=== PATIENT | male | born 1995 | race Asian ===

== ENCOUNTER 2020-12-10 02:12 | Inpatient (IN) ==
[2020-12-10] MEDS ORDERED: Morphine 4 MG/ML VIAL (1 ml) IV ONE (02:26)
[2020-12-10] MEDS ORDERED: Morphine 4 MG/ML VIAL (1 ml) IV PRN (02:26)
[2020-12-10] MEDS ORDERED: Lactated Ringers 1000 ml BAG 1,000 ML IV ONE (02:26)
[2020-12-10 02:54] LABS: ABS Lymphocytes 0.2 10^3/ul (1.0-4.8); ABS Monocytes 0.4 10^3/ul (0-0.8); ABS Neutrophils 18.1 10^3/ul (1.5-7.7); Eosinophil % 0.1 %; Hematocrit 35 % (42-52); Hemoglobin 11.3 g/dL (14.0-18.0); Lymphocyte % 1.2 %; Mean Corpuscular HGB Conc 32 g/dL (31-36); Mean Corpuscular Hemoglobin 23 pg (27-31); Mean Corpuscular Volume 73 fL (80-94); Platelet Count 506 10^3/uL (150-450); Red Blood Count 4.86 10^6 /uL (4.18-5.48); Red Cell Distribution Width 17 % (10-15); White Blood Count 18.8 10^3/uL (3.5-10.8)
[2020-12-10 03:07] LABS: Albumin 4.2 g/dL (3.2-5.2); Albumin/Globulin Ratio 1.2 (1-3); C Reactive Protein 45.79 mg/L (<8.01); EGFR African American 158.6 (>60); EGFR Non-African American 131.1 (>60); Globulin 3.4 g/dL (2-4); Potassium 3.6 mmol/L (3.5-5.0); Total Bilirubin 0.4 mg/dL (0.2-1.0); Total Protein 7.6 g/dL (6.4-8.9)
[2020-12-10] MEDS ORDERED: Iohexol 300 (CONTRAST) 10 ML SDV IV ONE (04:50)
[2020-12-10] MEDS ORDERED: methylPREDNISolone 125 mg 2 ML VIAL IV ONE (06:26)
[2020-12-10 07:33] LABS: Urine Appearance Clear; Urine Bacteria Absent (Absent); Urine Bilirubin Negative (Negative); Urine Blood Negative (Negative); Urine Color Yellow; Urine Glucose Negative (Negative); Urine Ketones Trace (Negative); Urine Nitrite Negative (Negative); Urine Protein Negative (Negative); Urine Red Blood Cell Trace(0-2/hpf) (Absent); Urine Specific Gravity 1.045 (1.002-1.030); Urine Urobilinogen Negative (Negative); Urine White Blood Cell Trace(0-5/hpf) (Absent)
[2020-12-10] MEDS: NS 0.9% 1000 ml BAG 1,000 ML IV SCH ×3 (07:47→23:54)
[2020-12-10] MEDS ORDERED: Piperacillin/Tazobac ADVAN 3.375 GM in NS 0.9% 100 ml BAG 100 ML IV ONE (08:22)
[2020-12-10] MEDS ORDERED: NS 0.9% 1000 ml BAG 1,000 ML IV ONE (08:22)
[2020-12-10] MEDS ORDERED: Zosyn per Pharmacy NOTE FOLLOW UP SCH (09:00)
[2020-12-10] MEDS: Pantoprazole VIAL 40 MG VIAL IV SCH (11:28)
[2020-12-10] MEDS: Piperacillin/Tazobac ADVAN 3.375 GM in NS 0.9% 100 ml BAG 100 ML IV SCH ×2 (12:50→20:39)
[2020-12-10] MEDS: methylPREDNISolone SOD 40 mg/ml 1 ml VIAL IV SCH ×2 (16:00→23:30)
[2020-12-10] MEDS: Morphine 2 MG/ML SYRINGE IV PRN ×2 (16:31→20:42)
[2020-12-11] MEDS: Piperacillin/Tazobac ADVAN 3.375 GM in NS 0.9% 100 ml BAG 100 ML IV SCH ×3 (05:09→20:42)
[2020-12-11 06:18] LABS: Hematocrit 32 % (42-52); Hemoglobin 10.2 g/dL (14.0-18.0); Mean Corpuscular HGB Conc 32 g/dL (31-36); Mean Corpuscular Hemoglobin 23 pg (27-31); Mean Corpuscular Volume 74 fL (80-94); Mean Platelet Volume 8.1 fL (7.4-10.4); Platelet Count 491 10^3/uL (150-450); Red Blood Count 4.38 10^6 /uL (4.18-5.48); Red Cell Distribution Width 16 % (10-15); White Blood Count 34.2 10^3/uL (3.5-10.8)
[2020-12-11 06:29] LABS: Calcium 9.2 mg/dL (8.6-10.3); EGFR African American 174.9 (>60); EGFR Non-African American 144.5 (>60); Potassium 3.7 mmol/L (3.5-5.0)
[2020-12-11 06:38] LABS: ABS Lymphocytes 0.6 10^3/ul (1.0-4.8); ABS Monocytes 0.6 10^3/ul (0-0.8); Lymphocyte % 1.7 %
[2020-12-11] MEDS: Pantoprazole VIAL 40 MG VIAL IV SCH (07:25)
[2020-12-11] MEDS: methylPREDNISolone SOD 40 mg/ml 1 ml VIAL IV SCH ×3 (07:25→23:49)
[2020-12-11] MEDS: NS 0.9% 1000 ml BAG 1,000 ML IV SCH ×2 (07:30→16:07)
[2020-12-11 09:18] LABS: ABS Lymphocytes 0.6 10^3/ul (1.0-4.8); ABS Monocytes 0.5 10^3/ul (0-0.8); ABS Neutrophils 30.8 10^3/ul (1.5-7.7); Hematocrit 33 % (42-52); Lymphocyte % 1.9 %; Mean Corpuscular HGB Conc 31 g/dL (31-36); Mean Corpuscular Hemoglobin 23 pg (27-31); Mean Corpuscular Volume 73 fL (80-94); Mean Platelet Volume 8.1 fL (7.4-10.4); Platelet Count 463 10^3/uL (150-450); Red Blood Count 4.43 10^6 /uL (4.18-5.48); Red Cell Distribution Width 17 % (10-15)
[2020-12-11 10:47] LABS: Hepatitis B Surface Antigen Nonreactive (Nonreactive)
[2020-12-11 10:52] LABS: Hepatitis A Ab IgM Negative (Negative); Hepatitis B Core IgM Nonreactive (Nonreactive)
[2020-12-11 10:55] LABS: HIV 4th Generation Nonreactive (Nonreactive)
[2020-12-11 11:04] LABS: Hepatitis C Antibody Negative (Negative)
[2020-12-12] MEDS: Piperacillin/Tazobac ADVAN 3.375 GM in NS 0.9% 100 ml BAG 100 ML IV SCH ×2 (04:40→12:26)
[2020-12-12 08:19] LABS: ABS Lymphocytes 0.6 10^3/ul (1.0-4.8); ABS Monocytes 0.6 10^3/ul (0-0.8); ABS Neutrophils 22.3 10^3/ul (1.5-7.7); Hematocrit 32 % (42-52); Hemoglobin 10.4 g/dL (14.0-18.0); Lymphocyte % 2.8 %; Mean Corpuscular HGB Conc 32 g/dL (31-36); Mean Corpuscular Hemoglobin 23 pg (27-31); Mean Corpuscular Volume 72 fL (80-94); Mean Platelet Volume 8.2 fL (7.4-10.4); Platelet Count 509 10^3/uL (150-450); Red Blood Count 4.47 10^6 /uL (4.18-5.48); Red Cell Distribution Width 17 % (10-15); White Blood Count 23.5 10^3/uL (3.5-10.8)
[2020-12-12] MEDS: Pantoprazole VIAL 40 MG VIAL IV SCH (08:19)
[2020-12-12] MEDS: methylPREDNISolone SOD 40 mg/ml 1 ml VIAL IV SCH ×3 (08:19→23:15)
[2020-12-12 08:29] LABS: Albumin 3.8 g/dL (3.2-5.2); C Reactive Protein 148.57 mg/L (<8.01); Calcium 9.2 mg/dL (8.6-10.3); EGFR African American 171.9 (>60); EGFR Non-African American 142.1 (>60); Globulin 3.7 g/dL (2-4); Potassium 3.7 mmol/L (3.5-5.0); Total Bilirubin 0.4 mg/dL (0.2-1.0); Total Protein 7.5 g/dL (6.4-8.9)
[2020-12-12] MEDS ORDERED: Piperacillin/Tazobac ADVAN 3.375 GM in NS 0.9% 100 ml BAG 100 ML IV ONE (21:35)
[2020-12-12] MEDS ORDERED: Zosyn per Pharmacy NOTE FOLLOW UP SCH (22:00)
[2020-12-12] MEDS: ZOSYN 3.375 GM Q8H per EXTENDED INFUSION IV SCH (22:20)
[2020-12-12] MEDS: Morphine 2 MG/ML SYRINGE IV PRN (23:15)
[2020-12-13] MEDS: ZOSYN 3.375 GM Q8H per EXTENDED INFUSION IV SCH ×3 (06:14→23:10)
[2020-12-13 07:47] LABS: ABS Lymphocytes 0.5 10^3/ul (1.0-4.8); ABS Monocytes 0.8 10^3/ul (0-0.8); ABS Neutrophils 17.1 10^3/ul (1.5-7.7); Hematocrit 31 % (42-52); Hemoglobin 9.9 g/dL (14.0-18.0); Lymphocyte % 2.5 %; Mean Corpuscular HGB Conc 32 g/dL (31-36); Mean Corpuscular Hemoglobin 23 pg (27-31); Mean Corpuscular Volume 72 fL (80-94); Mean Platelet Volume 7.9 fL (7.4-10.4); Platelet Count 472 10^3/uL (150-450); Red Cell Distribution Width 16 % (10-15); White Blood Count 18.3 10^3/uL (3.5-10.8)
[2020-12-13] MEDS: methylPREDNISolone SOD 40 mg/ml 1 ml VIAL IV SCH ×3 (07:51→23:16)
[2020-12-13 08:01] LABS: Albumin 3.3 g/dL (3.2-5.2); C Reactive Protein 69.76 mg/L (<8.01); Calcium 8.6 mg/dL (8.6-10.3); EGFR African American 156.2 (>60); EGFR Non-African American 129.1 (>60); Globulin 3.3 g/dL (2-4); Potassium 3.9 mmol/L (3.5-5.0); Total Bilirubin 0.3 mg/dL (0.2-1.0); Total Protein 6.6 g/dL (6.4-8.9)
[2020-12-13 13:06] LABS: QuantiferonTb Gold Plus Result Negative (Negative)
[2020-12-14 06:32] LABS: ABS Lymphocytes 0.3 10^3/ul (1.0-4.8); ABS Monocytes 0.5 10^3/ul (0-0.8); ABS Neutrophils 12.5 10^3/ul (1.5-7.7); Eosinophil % 0.1 %; Hematocrit 33 % (42-52); Hemoglobin 10.5 g/dL (14.0-18.0); Lymphocyte % 2.1 %; Mean Corpuscular HGB Conc 32 g/dL (31-36); Mean Corpuscular Hemoglobin 23 pg (27-31); Mean Corpuscular Volume 72 fL (80-94); Mean Platelet Volume 8.4 fL (7.4-10.4); Platelet Count 496 10^3/uL (150-450); Red Blood Count 4.57 10^6 /uL (4.18-5.48); Red Cell Distribution Width 16 % (10-15); White Blood Count 13.4 10^3/uL (3.5-10.8)
[2020-12-14 06:34] LABS: Albumin 3.4 g/dL (3.2-5.2); C Reactive Protein 86.46 mg/L (<8.01); Calcium 8.6 mg/dL (8.6-10.3); EGFR African American 163.7 (>60); EGFR Non-African American 135.3 (>60); Globulin 3.5 g/dL (2-4); Potassium 3.8 mmol/L (3.5-5.0); Total Bilirubin 0.3 mg/dL (0.2-1.0); Total Protein 6.9 g/dL (6.4-8.9)
[2020-12-14] MEDS: ZOSYN 3.375 GM Q8H per EXTENDED INFUSION IV SCH ×2 (06:38→15:28)
[2020-12-14] MEDS: methylPREDNISolone SOD 40 mg/ml 1 ml VIAL IV SCH ×3 (09:06→23:40)
[2020-12-15] MEDS: methylPREDNISolone SOD 40 mg/ml 1 ml VIAL IV SCH (07:23)
[2020-12-15 08:36] LABS: ABS Lymphocytes 0.5 10^3/ul (1.0-4.8); ABS Monocytes 0.8 10^3/ul (0-0.8); ABS Neutrophils 14.6 10^3/ul (1.5-7.7); Eosinophil % 0.1 %; Hematocrit 36 % (42-52); Hemoglobin 11.5 g/dL (14.0-18.0); Lymphocyte % 2.9 %; Mean Corpuscular HGB Conc 32 g/dL (31-36); Mean Corpuscular Hemoglobin 23 pg (27-31); Mean Corpuscular Volume 73 fL (80-94); Platelet Count 544 10^3/uL (150-450); Red Blood Count 5.02 10^6 /uL (4.18-5.48); Red Cell Distribution Width 16 % (10-15); White Blood Count 15.9 10^3/uL (3.5-10.8)
[2020-12-15 08:49] LABS: ALT 33 U/L (7-52); AST 14 U/L (13-39); Albumin 3.6 g/dL (3.2-5.2); Alkaline Phosphatase 54 U/L (35-149); Anion Gap 5 mmol/L (2-11); Blood Urea Nitrogen 10 mg/dL (6-24); C Reactive Protein 108.45 mg/L (<8.01); CO2 Carbon Dioxide 31 mmol/L (22-32); Calcium 8.9 mg/dL (8.6-10.3); Chloride 100 mmol/L (101-111); EGFR African American 174.9 (>60); EGFR Non-African American 144.5 (>60); Globulin 3.6 g/dL (2-4); Glucose 104 mg/dL (70-100); Potassium 3.7 mmol/L (3.5-5.0); Sodium 136 mmol/L (135-145); Total Protein 7.2 g/dL (6.4-8.9)
[2020-12-15 09:00] LABS: Total Iron Binding Capacity 227 mcg/dL (250-450); Transferrin 162 mg/dL (203-362)
[2020-12-15 09:30] LABS: % Iron Saturation 9 % (15-55); Iron < 20 ug/dL (50-212); Unsaturated Iron Binding < 212 ug/dL
[2020-12-15] MEDS ORDERED: Iron Sucrose 200 MG in NS 0.9% 100 ml BAG 100 ML IVPB SCH (10:30)
[2020-12-15 11:19] VITALS: BP 100/65
== END 2020-12-15 18:30 | disposition home or self-care (01) | DRG 872 ==
LOC: ED 02:12 → SSU 10:29 → SUATTDRO 10:49
PROVIDERS: ADMIT Internal Medicine; ATTEND Internal Medicine

== ENCOUNTER 2020-12-16 08:13 | Inpatient (IN) ==
[2020-12-16] MEDS ORDERED: Lactated Ringers 1000 ml BAG 1,000 ML IV ONE ×2 (08:25→09:24)
[2020-12-16] MEDS ORDERED: Ondansetron 4 mg VIAL 2 MG/ML 2 ml VIAL IV ONE (08:36)
[2020-12-16] MEDS ORDERED: Ondansetron 4 mg VIAL 2 MG/ML 2 ml VIAL ONE (08:36)
[2020-12-16 08:57] LABS: Hematocrit 39 % (42-52); Hemoglobin 12.2 g/dL (14.0-18.0); Mean Corpuscular HGB Conc 31 g/dL (31-36); Mean Corpuscular Hemoglobin 23 pg (27-31); Mean Corpuscular Volume 73 fL (80-94); Mean Platelet Volume 7.9 fL (7.4-10.4); Platelet Count 559 10^3/uL (150-450); Red Blood Count 5.38 10^6 /uL (4.18-5.48); Red Cell Distribution Width 16 % (10-15); White Blood Count 31.6 10^3/uL (3.5-10.8)
[2020-12-16 08:58] LABS: ABS Basophils 0.2 10^3/ul (0-0.2); ABS Eosinophils 0.1 10^3/ul (0-0.6); ABS Lymphocytes 0.8 10^3/ul (1.0-4.8); ABS Monocytes 1.1 10^3/ul (0-0.8); ABS Neutrophils 29.3 10^3/ul (1.5-7.7); Eosinophil % 0.2 %; Lymphocyte % 2.7 %
[2020-12-16] MEDS ORDERED: Ciprofloxacin 400mg IVPREMIX 400 MG/200 ML BAG IVPB ONE (09:10)
[2020-12-16] MEDS ORDERED: metroNIDAZOLE IV 500 MG/100ML 500 MG/100 ML BAG IVPB ONE (09:11)
[2020-12-16 09:13] LABS: Albumin 3.5 g/dL (3.2-5.2); C Reactive Protein 111.35 mg/L (<8.01); Calcium 9.1 mg/dL (8.6-10.3); EGFR African American 138.9 (>60); EGFR Non-African American 114.8 (>60); Globulin 3.6 g/dL (2-4); Magnesium 1.6 mg/dL (1.9-2.7); Potassium 3.1 mmol/L (3.5-5.0); Total Bilirubin 0.4 mg/dL (0.2-1.0); Total Protein 7.1 g/dL (6.4-8.9)
[2020-12-16] MEDS: methylPREDNISolone SOD 40 mg/ml 1 ml VIAL IV SCH ×2 (09:51→16:51)
[2020-12-16 09:56] LABS: RBC Morphology Normal (Normal)
[2020-12-16] MEDS ORDERED: Magnesium Sulfate 2 gm BAG 2 GM/50 ML BAG IVPB ONE (10:54)
[2020-12-16] MEDS: Lactated Ringers 1000 ml BAG 1,000 ML IV SCH ×2 (11:48→17:57)
[2020-12-16] MEDS: KCL 20 MEQ/100 ML IVPREMIX 20 MEQ/100 ML BAG IV SCH ×3 (11:53→16:52)
[2020-12-16] MEDS ORDERED: Iohexol 350 (CONTRAST) 500 ML MDV IV ONE (13:18)
[2020-12-16] MEDS: metroNIDAZOLE IV 500 MG/100ML 500 MG/100 ML BAG IVPB SCH (20:12)
[2020-12-17] MEDS: methylPREDNISolone SOD 40 mg/ml 1 ml VIAL IV SCH ×3 (01:15→17:11)
[2020-12-17] MEDS: metroNIDAZOLE IV 500 MG/100ML 500 MG/100 ML BAG IVPB SCH ×3 (04:19→20:25)
[2020-12-17 05:00] LABS: ABS Eosinophils 0.1 10^3/ul (0-0.6); ABS Lymphocytes 0.8 10^3/ul (1.0-4.8); ABS Monocytes 1.6 10^3/ul (0-0.8); ABS Neutrophils 26.6 10^3/ul (1.5-7.7); Eosinophil % 0.3 %; Hematocrit 34 % (42-52); Hemoglobin 10.8 g/dL (14.0-18.0); Lymphocyte % 2.7 %; Mean Corpuscular HGB Conc 32 g/dL (31-36); Mean Corpuscular Hemoglobin 23 pg (27-31); Mean Corpuscular Volume 73 fL (80-94); Platelet Count 501 10^3/uL (150-450); Red Blood Count 4.68 10^6 /uL (4.18-5.48); Red Cell Distribution Width 16 % (10-15)
[2020-12-17 05:19] LABS: Albumin 3.2 g/dL (3.2-5.2); Albumin/Globulin Ratio 0.9 (1-3); C Reactive Protein 245.16 mg/L (<8.01); Calcium 8.8 mg/dL (8.6-10.3); EGFR African American 158.6 (>60); EGFR Non-African American 131.1 (>60); Globulin 3.5 g/dL (2-4); Potassium 4.1 mmol/L (3.5-5.0); Total Bilirubin 0.5 mg/dL (0.2-1.0); Total Protein 6.7 g/dL (6.4-8.9)
[2020-12-17] MEDS: Ciprofloxacin 400mg IVPREMIX 400 MG/200 ML BAG IVPB SCH (07:58)
[2020-12-17] MEDS ORDERED: Ciprofloxacin 400mg IVPREMIX 400 MG/200 ML BAG IVPB SCH (10:00)
[2020-12-17] MEDS ORDERED: Iohexol 300 (CONTRAST) 10 ML SDV IV ONE (13:51)
[2020-12-17] MEDS: Lactated Ringers 1000 ml BAG 1,000 ML IV SCH (17:11)
[2020-12-18] MEDS: methylPREDNISolone SOD 40 mg/ml 1 ml VIAL IV SCH ×3 (00:27→16:29)
[2020-12-18] MEDS: Lactated Ringers 1000 ml BAG 1,000 ML IV SCH ×2 (04:18→16:29)
[2020-12-18] MEDS: metroNIDAZOLE IV 500 MG/100ML 500 MG/100 ML BAG IVPB SCH ×3 (04:18→20:59)
[2020-12-18 06:33] LABS: ABS Lymphocytes 0.3 10^3/ul (1.0-4.8); ABS Monocytes 0.6 10^3/ul (0-0.8); ABS Neutrophils 17.6 10^3/ul (1.5-7.7); Hematocrit 32 % (42-52); Hemoglobin 10.2 g/dL (14.0-18.0); Lymphocyte % 1.6 %; Mean Corpuscular HGB Conc 32 g/dL (31-36); Mean Corpuscular Hemoglobin 23 pg (27-31); Mean Corpuscular Volume 72 fL (80-94); Mean Platelet Volume 7.8 fL (7.4-10.4); Platelet Count 513 10^3/uL (150-450); Red Blood Count 4.51 10^6 /uL (4.18-5.48); Red Cell Distribution Width 16 % (10-15); White Blood Count 18.4 10^3/uL (3.5-10.8)
[2020-12-18 06:50] LABS: Albumin 3.3 g/dL (3.2-5.2); Albumin/Globulin Ratio 0.9 (1-3); C Reactive Protein 223.45 mg/L (<8.01); EGFR African American 174.9 (>60); EGFR Non-African American 144.5 (>60); Globulin 3.5 g/dL (2-4); Potassium 4.2 mmol/L (3.5-5.0); Total Bilirubin 0.4 mg/dL (0.2-1.0); Total Protein 6.8 g/dL (6.4-8.9)
[2020-12-18] MEDS: Ciprofloxacin 400mg IVPREMIX 400 MG/200 ML BAG IVPB SCH (08:27)
[2020-12-18 11:44] LABS: Hepatitis B Surface Antigen Nonreactive (Nonreactive)
[2020-12-18 11:49] LABS: Hepatitis B Core IgM Nonreactive (Nonreactive)
[2020-12-18 13:35] LABS: TB1 Ag minus Nil Result -0.01 IU/mL
[2020-12-18 13:37] LABS: QuantiferonTb Gold Plus Result Negative (Negative)
[2020-12-19] MEDS: methylPREDNISolone SOD 40 mg/ml 1 ml VIAL IV SCH ×3 (02:02→16:11)
[2020-12-19] MEDS: Lactated Ringers 1000 ml BAG 1,000 ML IV SCH ×2 (02:46→16:11)
[2020-12-19] MEDS: metroNIDAZOLE IV 500 MG/100ML 500 MG/100 ML BAG IVPB SCH ×3 (02:52→20:35)
[2020-12-19 05:19] LABS: Calcium 8.4 mg/dL (8.6-10.3); EGFR African American 177.9 (>60); Magnesium 1.9 mg/dL (1.9-2.7); Potassium 3.6 mmol/L (3.5-5.0)
[2020-12-19 05:29] LABS: ABS Lymphocytes 0.3 10^3/ul (1.0-4.8); ABS Monocytes 0.7 10^3/ul (0-0.8); Hematocrit 31 % (42-52); Lymphocyte % 1.7 %; Mean Corpuscular HGB Conc 32 g/dL (31-36); Mean Corpuscular Hemoglobin 23 pg (27-31); Mean Corpuscular Volume 72 fL (80-94); Mean Platelet Volume 8.1 fL (7.4-10.4); Platelet Count 550 10^3/uL (150-450); Red Blood Count 4.37 10^6 /uL (4.18-5.48); Red Cell Distribution Width 16 % (10-15); White Blood Count 18.1 10^3/uL (3.5-10.8)
[2020-12-19] MEDS: Ciprofloxacin 400mg IVPREMIX 400 MG/200 ML BAG IVPB SCH (08:22)
[2020-12-19] MEDS ORDERED: Iohexol 300 (CONTRAST) 10 ML SDV IV ONE (12:33)
[2020-12-19] MEDS ORDERED: Enoxaparin 40 MG/0.4 ML SYR SUBCUT SCH (21:00)
[2020-12-20] MEDS: methylPREDNISolone SOD 40 mg/ml 1 ml VIAL IV SCH ×2 (01:36→08:36)
[2020-12-20] MEDS: metroNIDAZOLE IV 500 MG/100ML 500 MG/100 ML BAG IVPB SCH ×2 (03:43→12:51)
[2020-12-20 04:38] LABS: ABS Basophils 0.1 10^3/ul (0-0.2); ABS Lymphocytes 0.4 10^3/ul (1.0-4.8); ABS Monocytes 0.5 10^3/ul (0-0.8); ABS Neutrophils 14.8 10^3/ul (1.5-7.7); Hematocrit 33 % (42-52); Hemoglobin 10.4 g/dL (14.0-18.0); Lymphocyte % 2.4 %; Mean Corpuscular HGB Conc 32 g/dL (31-36); Mean Corpuscular Hemoglobin 23 pg (27-31); Mean Corpuscular Volume 72 fL (80-94); Mean Platelet Volume 7.6 fL (7.4-10.4); Platelet Count 598 10^3/uL (150-450); Red Cell Distribution Width 16 % (10-15); White Blood Count 15.8 10^3/uL (3.5-10.8)
[2020-12-20 04:52] LABS: C Reactive Protein 53.37 mg/L (<8.01); Calcium 8.4 mg/dL (8.6-10.3); EGFR African American 184.2 (>60); EGFR Non-African American 152.2 (>60); Potassium 3.4 mmol/L (3.5-5.0)
[2020-12-20] MEDS ORDERED: KCL 20 MEQ/100 ML IVPREMIX 20 MEQ/100 ML BAG IV ONE (07:50)
[2020-12-20] MEDS: Ciprofloxacin 400mg IVPREMIX 400 MG/200 ML BAG IVPB SCH (11:06)
[2020-12-20 13:36] VITALS: BP 128/78
== END 2020-12-20 13:40 | disposition short-term general hospital (02) | DRG 385 ==
LOC: MED 08:13 → ED 08:13 → MED 12:40 → SUATTDRO 12-17 11:41 → MED 12-17 20:14
PROVIDERS: ADMIT Internal Medicine; ATTEND Hospitalist

== ENCOUNTER 2021-03-05 07:18 | Inpatient (IN) ==
[2021-03-05] MEDS ORDERED: Lactated Ringers 1000 ml BAG 1,000 ML IV ONE ×4 (07:47→19:57)
[2021-03-05] MEDS ORDERED: Ondansetron 4 mg VIAL 2 MG/ML 2 ml VIAL IV ONE (07:47)
[2021-03-05 08:22] LABS: ABS Monocytes 0.6 10^3/ul (0-0.8); ABS Neutrophils 12.6 10^3/ul (1.5-7.7); Eosinophil % 0.3 %; Hematocrit 43 % (42-52); Hemoglobin 14.2 g/dL (14.0-18.0); Mean Corpuscular HGB Conc 33 g/dL (31-36); Mean Corpuscular Hemoglobin 26 pg (27-31); Mean Corpuscular Volume 78 fL (80-94); Mean Platelet Volume 8.6 fL (7.4-10.4); Platelet Count 331 10^3/uL (150-450); Red Blood Count 5.55 10^6 /uL (4.18-5.48); Red Cell Distribution Width 17 % (10-15); White Blood Count 14.3 10^3/uL (3.5-10.8)
[2021-03-05 08:42] LABS: ALT 40 U/L (7-52); AST 19 U/L (13-39); Albumin/Globulin Ratio 1.6 (1-3); Alkaline Phosphatase 83 U/L (35-149); Anion Gap 10 mmol/L (2-11); Blood Urea Nitrogen 19 mg/dL (6-24); C Reactive Protein 6.47 mg/L (<8.01); CO2 Carbon Dioxide 27 mmol/L (22-32); Calcium 10.2 mg/dL (8.6-10.3); Chloride 100 mmol/L (101-111); Globulin 3.2 g/dL (2-4); Glucose 118 mg/dL (70-100); Lipase < 10 U/L (11.0-82.0); Potassium 3.8 mmol/L (3.5-5.0); Sodium 137 mmol/L (135-145); Total Protein 8.2 g/dL (6.4-8.9)
[2021-03-05] MEDS ORDERED: Iohexol 300 (CONTRAST) 10 ML SDV IV ONE (09:26)
[2021-03-05 10:34] LABS: Urine Appearance Clear; Urine Bilirubin Negative (Negative); Urine Blood Negative (Negative); Urine Color Yellow; Urine Glucose Negative (Negative); Urine Ketones Negative (Negative); Urine Nitrite Negative (Negative); Urine Protein Negative (Negative); Urine Urobilinogen Negative (Negative)
[2021-03-05] MEDS: methylPREDNISolone SOD 40 mg/ml 1 ml VIAL IV SCH ×2 (15:44→23:04)
[2021-03-05 18:22] LABS: Rapid COVID-19 Molecular Undetected (Undetected)
[2021-03-05] MEDS ORDERED: Ondansetron 4 mg VIAL 2 MG/ML 2 ml VIAL IV PRN (19:57)
[2021-03-06 06:17] LABS: ABS Monocytes 0.2 10^3/ul (0-0.8); ABS Neutrophils 9.7 10^3/ul (1.5-7.7); Hematocrit 37 % (42-52); Hemoglobin 11.9 g/dL (14.0-18.0); Lymphocyte % 9.1 %; Mean Corpuscular HGB Conc 33 g/dL (31-36); Mean Corpuscular Hemoglobin 26 pg (27-31); Mean Corpuscular Volume 79 fL (80-94); Mean Platelet Volume 9.2 fL (7.4-10.4); Platelet Count 265 10^3/uL (150-450); Red Blood Count 4.62 10^6 /uL (4.18-5.48); Red Cell Distribution Width 17 % (10-15); White Blood Count 10.9 10^3/uL (3.5-10.8)
[2021-03-06 06:29] LABS: Calcium 9.2 mg/dL (8.6-10.3); Potassium 4.2 mmol/L (3.5-5.0); eGFR CKD-EPI 138.4 (>60)
[2021-03-06] MEDS: Pantoprazole VIAL 40 MG VIAL IV SCH (07:59)
[2021-03-06] MEDS: methylPREDNISolone SOD 40 mg/ml 1 ml VIAL IV SCH ×3 (07:59→21:59)
[2021-03-07 06:09] LABS: ABS Monocytes 0.4 10^3/ul (0-0.8); ABS Neutrophils 9.3 10^3/ul (1.5-7.7); Hematocrit 38 % (42-52); Hemoglobin 12.4 g/dL (14.0-18.0); Lymphocyte % 9.6 %; Mean Corpuscular HGB Conc 32 g/dL (31-36); Mean Corpuscular Hemoglobin 26 pg (27-31); Mean Corpuscular Volume 79 fL (80-94); Mean Platelet Volume 8.7 fL (7.4-10.4); Platelet Count 308 10^3/uL (150-450); Red Blood Count 4.85 10^6 /uL (4.18-5.48); Red Cell Distribution Width 17 % (10-15); White Blood Count 10.7 10^3/uL (3.5-10.8)
[2021-03-07 06:28] LABS: Anion Gap 7 mmol/L (2-11); Blood Urea Nitrogen 13 mg/dL (6-24); CO2 Carbon Dioxide 28 mmol/L (22-32); Calcium 9.7 mg/dL (8.6-10.3); Chloride 102 mmol/L (101-111); Glucose 114 mg/dL (70-100); Magnesium 2.2 mg/dL (1.9-2.7); Potassium 4.1 mmol/L (3.5-5.0); Sodium 137 mmol/L (135-145); eGFR CKD-EPI 133.9 (>60)
[2021-03-07] MEDS: Pantoprazole VIAL 40 MG VIAL IV SCH (08:59)
[2021-03-07 10:08] LABS: % Iron Saturation 16 % (15-55); Iron 50 ug/dL (50-212); Total Iron Binding Capacity 309 mcg/dL (250-450); Transferrin 221 mg/dL (203-362); Unsaturated Iron Binding < 294 ug/dL
[2021-03-07 10:29] LABS: Ferritin 33.6 ng/mL (24-336)
[2021-03-07 16:14] VITALS: BP 125/61
[2021-03-12 21:34] LABS: Calprotectin 501 mcg/g
== END 2021-03-07 18:00 | disposition home or self-care (01) | DRG 389 ==
LOC: ED 07:18 → SUATTDRO 13:51 → EDHOLD 13:51 → MEDTELE 21:53
PROVIDERS: ADMIT Hospitalist; ATTEND Internal Medicine